=== PATIENT | male | born 1960 | race Caucasian/White ===

== ENCOUNTER 2019-11-18 21:30 | Emergency (ER) | payer BC, SELFPAY ==
--- NOTE | ~2019-11-18 | XR_ITS ---
XR finger 5th LT min 2V DATE: 11/18/2019 23:15 INDICATION: Cut finger while cutting meat. Proximal laceration. TECHNIQUE: 4 views COMPARISON: none FINDINGS: No radiopaque soft tissue foreign body. No fracture or dislocation, periosteal reaction or bone destruction or abnormal soft tissue calcification. IMPRESSION: Negative Reviewed, dictated and finalized at location A. IMPRESSION: Negative
[2019-11-18 21:33] VITALS: BP 175/88; PULSE 84; RESP 16; TEMP 36.9; O2SAT 100
--- NOTE | 2019-11-18 23:50 | ED.WOUNDLAC ---
HPI - Wound/Laceration General Chief Complaint: Wound/Laceration Stated Complaint: left finger injury Time Seen by Provider: 11/18/19 22:57 Source: patient and family Mode of arrival: ambulatory Limitations: no limitations History of Present Illness HPI narrative: Left fifth finger laceration, knife, while cutting meat, prior to arrival. Last tetanus shot more than 5 years ago Related Data Home Medications Medication Instructions Recorded Confirmed aspirin 81 mg tablet,delayed 81 mg PO DAILY 07/22/19 release linaclotide 145 mcg capsule 145 mcg PO DAILY 07/22/19 lovastatin 10 mg tablet 10 mg PO DAILY 07/22/19 Allergies Allergy/AdvReac Type Severity Reaction Status Date / Time Penicillins Allergy Unknown Hives Verified 11/18/19 21:44 Review of Systems Review of Systems: Narrative: CONSTITUTIONAL: Denies fever, chills, or sweats. EYES: Denies visual changes, redness, or discharge. ENT: Denies rhinorrhea, congestion, sore throat, or otalgia. CARDIOVASCULAR: Denies chest pain, palpitations, or edema. RESPIRATORY: Denies cough or dyspnea. GASTROINTESTINAL: Denies abdominal pain, nausea, vomiting, or diarrhea. GENITOURINARY: Denies dysuria or hematuria. SKIN: Denies rash or itching. MUSCULOSKELETAL: Denies back pain, joint pain, or myalgia. NEUROLOGIC: Denies headache, numbness, or weakness. PSYCHIATRIC: Denies anxiety or depression. [facility] Social History Social History Smoking status: Never smoker Alcohol intake: current Exam Narrative: Exam Narrative: General appearance: Well-developed, well-nourished Skin: Normal color, left fifth finger showed 1 cm laceration across the proximal interphalangeal joint Chest and respiratory: Airway patent, no respiratory distress, no accessory muscle use Heart: Regular rate/rhythm Vascular: Normal peripheral pulses, normal capillary refill. Musculoskeletal: Normal range of motion, nontender back Neurologic: Alert and oriented ?3, [employer] is normal as tested, no gross motor deficit Course Course Emergency Course: Stable Vital Signs Vital signs: Vital Signs Temperature 36.9 C 11/18/19 21:33 Pulse Rate 84 11/18/19 21:33 Respiratory Rate 16 11/18/19 21:33 Blood Pressure 175/88 H 09/04/20 21:33 Pulse Oximetry 100 11/18/19 21:33 Temperature 36.9 C 11/18/19 21:33 Pulse Rate 84 11/18/19 21:33 Respiratory Rate 16 11/18/19 21:33 Blood Pressure 175/88 H 11/18/19 21:33 Pulse Oximetry 100 11/18/19 21:33 Procedures Laceration Laceration 1: Date: 11/19/19 Time: 00:00 Site: hand (Left fifth finger) Side (If applicable): left Size (cm): 1 Description: linear and flap Depth: simple, single layer Local Anesthetic: lidocaine 1% and with epi Amount of anesthesia used (mL): 2 Pre-repair: wound explored and irrigated ====== Skin Level ====== Skin layer closed with: other (Ethilon) Size (cm): 6-0 Number of sutures: 4 Technique: simple, interrupted ====== Subcutaneous Layer ====== ====== Muscle Layer ====== ====== Tendon Layer ====== MDM - Wound/Laceration MDM Narrative Medical decision making narrative: Left fifth finger laceration, good flexion extension, no ligament involvement. Critical Care Time Critical Care Time Critical Care Time: No Discharge Plan Discharge Clinical Impression: Laceration Finger laceration Qualifiers: Encounter type: initial encounter Finger: little finger Damage to nail status: without damage Foreign body presence: without foreign body Laterality: left [place]
[2019-11-19] MEDS: TETANUS,DIPHTHERIA,AC PERTUSSIS ADULT (0.5 ML) BOOSTRIX IM (00:08)
[2019-11-19 00:12] VITALS: BP 136/70; PULSE 87; RESP 16; O2SAT 99
== END 2019-11-19 00:13 | disposition home or self-care (01) ==
PROVIDERS: Emergency Provider Emergency Medicine; PCP Family Medicine
DX: S61.217A Laceration without foreign body of left little finger without damage to nail, initial encounter (principal); W26.0XXA Contact with knife, initial encounter; Y93.G1 Activity, food preparation and clean up; Z23 Encounter for immunization
CPT/HCPCS: 12001; 73140; 90471; 90715; 99283